=== PATIENT | male | born 1980 | race Caucasian/White ===

== ENCOUNTER 2017-05-20 01:07 | Emergency (ER) | payer BC ==
[~2017-05-20] VITALS: Ht 185.4 cm; Wt 78.0 kg
[2017-05-20 01:10] VITALS: BP 130/90
[2017-05-20] MEDS ORDERED: LORazepam Inj 2mg/ml 1ml IV ONE (01:15)
[2017-05-20 01:25] VITALS: BP 130/90
[2017-05-20 01:35] LABS: BASOPHILS % (AUTO) 0.9 % (0.0-2.0); HEMATOCRIT 46.5 % (42.0-52.0); HEMOGLOBIN 16.5 G/DL (14.2-18.0); LYMPHOCYTES % (AUTO) 52.6 % (20.0-45.0); MEAN CORPUSCULAR VOLUME 90 FL (80-99); MONOCYTES % (AUTO) 7.7 % (1.0-10.0); NEUTROPHILS % (AUTO) 36.9 % (45.0-75.0); PLATELET COUNT 148 K/UL (150-450); RED BLOOD COUNT 5.19 M/UL (4.70-6.10)
[2017-05-20 01:45] LABS: ANION GAP 5 mmol/L (5-15); BLOOD UREA NITROGEN 25 mg/dL (7-18); CALCIUM 8.6 MG/DL (8.5-10.1); CARBON DIOXIDE 30 MMOL/L (21-32); CHLORIDE 105 MMOL/L (98-107); POTASSIUM 3.4 MMOL/L (3.5-5.1); SODIUM 140 MMOL/L (136-145)
[2017-05-20 01:49] LABS: ALANINE AMINOTRANSFERASE 26 U/L (12-78); ALBUMIN/GLOBULIN RATIO 1.2 (1.0-2.7); ALKALINE PHOSPHATASE 59 U/L (46-116); ASPARTATE AMINO TRANSFERASE 20 U/L (15-37); BILIRUBIN,TOTAL 0.5 MG/DL (0.2-1.0)
[2017-05-20] MEDS ORDERED: SOMA350 MG PO (02:12)
--- NOTE | 2017-05-20 02:12 | Emergency Room Report ---
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 He presents with chief complaint of epigastric pain with that his muscle spasm. Onset tonight. No nausea no vomiting. [place] tightness to the whole body. No pain. No altered mental status. Her look through the whole episode. Allergies: Coded Allergies: No Known Allergies (Unverified , 05/20/17) Patient History Past Medical History: see triage record, old chart reviewed Past Surgical History: none Pertinent Family History: none Social History: Denies: smoking Immunizations: other Reviewed Nursing Documentation: PMH: Agreed, PSxH: Agreed Review of Systems Eye: Denies: eye pain, blurred vision ENT: Denies: ear pain, nose congestion, throat swelling Respiratory: Denies: cough, shortness of breath Cardiovascular: Denies: chest pain, palpitations Gastrointestinal: Denies: abdominal pain, diarrhea, nausea, vomiting Musculoskeletal: Denies: back pain, joint pain Skin: Denies: rash Neurological: Denies: headache, numbness Endocrine: Denies: increased thirst, increased urine Hematologic/Lymphatic: Denies: easy bruising All Other Systems: negative except mentioned in HPI Physical Exam Vital Signs Date Time Temp Pulse Resp B/P (MAP) Pulse Ox O2 Delivery O2 Flow Rate FiO2 05/20/17 00:47 97.5 80 16 130/90 98 Room Air vitals normal Sp02 EP Interpretation: reviewed, normal General Appearance: well appearing, no apparent distress, alert Head: normocephalic, atraumatic Eyes: bilateral eye PERRL, bilateral eye EOMI ENT: hearing grossly normal, normal pharynx Neck: full range of motion, supple, no meningismus Respiratory: chest non-tender, lungs clear, normal breath sounds Cardiovascular #1: regular rate, rhythm, no murmur Gastrointestinal: normal bowel sounds, non tender, no mass, no organomegaly, no bruit, non-distended Musculoskeletal: back normal, gait/station normal, normal range of motion Psychiatric: mood/affect normal Skin: warm/dry Medical Decision Making Diagnostic Impression: Primary Impression: Muscle spasm ER Course Patient with muscle spasm. No evidence of any rhabdo. No evidence of infection. Better after Ativan. We'll discharge home. Lab Results Impression labs are normal Last Vital Signs Date Time Temp Pulse Resp B/P (MAP) Pulse Ox O2 Delivery O2 Flow Rate FiO2 05/20/17 01:10 97.5 16 130/90 98 Room Air 05/20/17 00:47 80 Status: improved Disposition: HOME, SELF-CARE Condition: Stable Scripts Carisoprodol* (SOMA*) 350 Mg Tablet 350 MG PO Q6H, #20 TAB Prov: ALANIS THOMAS M.D. 05/20/17 Additional Instructions: Followup with your DrSreedhar in 7 days return if symptom worsen. ALANIS THOMAS M.D. May 20, 2017 02:12
[2017-05-20 02:25] VITALS: BP 130/90
== END 2017-05-20 02:25 | disposition home or self-care (01) ==
LOC: EDBD 01:07 → EMR 01:10
DX: M62.838 Other muscle spasm (principal); R10.13 Epigastric pain; Z86.69 Personal history of other diseases of the nervous system and sense organs
CPT/HCPCS: 36415; 80053; 85025; 96374; 96375; 99284